=== PATIENT | male | born 1960 | race Caucasian/White ===

== ENCOUNTER 2024-09-07 12:07 | Outpatient (CLI) | payer OTHER | END 2024-09-07 23:59 | disposition home or self-care (01) | LOC: MRI02 12:07 | PROVIDERS: ATTEND Podiatrist Foot & Ankle Surgery | DX: M19.071 Primary osteoarthritis, right ankle and foot (principal); M65.871 Other synovitis and tenosynovitis, right ankle and foot; M25.871 Other specified joint disorders, right ankle and foot; M25.771 Osteophyte, right ankle; M85.671 Other cyst of bone, right ankle and foot; M76.61 Achilles tendinitis, right leg; M89.8X7 Other specified disorders of bone, ankle and foot; M25.471 Effusion, right ankle; M21.961 Unspecified acquired deformity of right lower leg; R60.9 Edema, unspecified; D36.13 Benign neoplasm of peripheral nerves and autonomic nervous system of lower limb, including hip; M92.60 Juvenile osteochondrosis of tarsus, unspecified ankle; M76.60 Achilles tendinitis, unspecified leg; M77.41 Metatarsalgia, right foot; M79.671 Pain in right foot; M79.672 Pain in left foot | CPT/HCPCS: 73718; 73721 ==

== ENCOUNTER 2025-10-29 07:35 | Day surgery (SDC) | payer OTHER ==
[2025-10-16 15:21] LABS: MEAN PLATELET VOLUME 7.8 FL (7.4-10.4); PRE OP HEMATOCRIT 43.9 % (42.0-52.0); PRE OP HEMOGLOBIN 15.0 g/dL (14.0-17.9); PRE OP PLATELET COUNT 242 X10'3 (140-440); PRE OP WHITE BLOOD COUNT 10.0 10'3 (4.8-10.8); RED CELL DISTRIBUTION WIDTH 13.9 % (11.5-14.5)
[2025-10-16 15:42] LABS: PRE OP INR 1.1 INR; PRE OP PARTIAL THROMB. TIME 26.0 SECONDS (22-32); PRE OP PROTIME 10.8 SECONDS (9.0-12.0)
[2025-10-16 15:54] LABS: CREATININE 1.26 MG/DL (0.60-1.10); PRE OP ALT 28 U/L (30-65); PRE OP ANION GAP 11 (8-16); PRE OP AST 16 U/L (10-37); PRE OP BILIRUB, TOTAL 1.4 MG/DL (0.0-1.0); PRE OP GLUCOSE 197 MG/DL (70-104); PRE OP POTASSIUM 3.8 MMOL/L (3.4-5.1); PRE OP SODIUM 140 MMOL/L (135-145); TOTAL CARBON DIOXIDE 27.1 MMOL/L (24-32); eGFR 57 ML/MIN
[~2025-10-29] VITALS: Ht 180.3 cm; Wt 118.1 kg
[2025-10-29] VITALS (10 sets, daily range): BP systolic 124–143; BP diastolic 69–91; PULSE 61–75; RESP 13–22; TEMP 97.3; O2SAT 91–98
[2025-10-29] MEDS: ceFAZolin 2gm/dext,iso 50mL 50 ML IV ONE (05:30)
[~2025-10-29 07:35] MED LIST: ATOR40TA71 PO; GLIM2TAB6 PO; METF-438 PO; TAMS-55 PO
[2025-10-29] MEDS: ringers solution, lacted 1,000 ML IV SCH (08:10)
[2025-10-29] MEDS ORDERED: fentaNYL/PF 50MCG/1 ML 2ML syringe ONE (10:34)
[2025-10-29] MEDS ORDERED: morphine 4 MG/ML inj SYRINge IV PRN (10:55)
[2025-10-29] MEDS ORDERED: ringers solution, lacted 1,000 ML IV SCH (10:55)
[2025-10-29] MEDS ORDERED: HYDROmorphone/PF 0.2 MG/ML SYRINGE IV PRN ×2 (10:55)
[2025-10-29] MEDS ORDERED: labetalol 20mg/4ml (5mg/ml) syringe IV PRN (10:55)
[2025-10-29] MEDS ORDERED: acetaminophen 1,000mg/100ml IV 100 ML IV PRN (10:55)
[2025-10-29] MEDS ORDERED: ondansetron/PF 4mg/2ml inj IV PRN (10:55)
[2025-10-29] MEDS ORDERED: hydrALAZINE 20mg/ml inj. IV PRN (10:55)
[2025-10-29] MEDS ORDERED: LIDOcaine 2% (20mg/ml) 5ml vial ONE (11:06)
[2025-10-29] MEDS ORDERED: midazolam 1 mg/ML 2ml injection ONE (11:06)
[2025-10-29] MEDS ORDERED: ROPIVAcaine 0.5% (5mg/ml) 30ml vial ONE (11:06)
[2025-10-29] MEDS ORDERED: ePHEDrine 50MG/ML INJ. ONE (11:07)
[2025-10-29] MEDS ORDERED: LIDOcaine 1%/PF 5ML 10 MG/ML VIAL ONE (11:07)
[2025-10-29] MEDS ORDERED: dexamethasone sod phosphate 4mg/ml inj. ONE (11:07)
[2025-10-29] MEDS ORDERED: propofol inj 20 ML IV ONE ×2 (11:07→12:34)
[2025-10-29] MEDS ORDERED: rocuronium 10mg/ml inj IV ONE (11:07)
[2025-10-29] MEDS ORDERED: 0.9 % SODIUM CHLORIDE 10 ML VIAL ONE (11:07)
[2025-10-29] MEDS ORDERED: ondansetron/PF 4mg/2ml inj ONE (11:08)
[2025-10-29] MEDS ORDERED: glycopyrrolate 0.2mg/ml inj ONE (12:21)
--- NOTE | 2025-10-29 16:43 | OPERATIVE REPORT ---
Operative Report Providers to CC ~ Date of Procedure: Oct 29, 2025 Pre-Operative Diagnosis: Left shoulder rotator cuff tear Post-Operative Diagnosis SAME as PRE-Op Procedure Performed Left shoulder arthroscopy with limited shoulder debridement. Left shoulder rotator cuff repair Surgeon: Osman Cui MD Safety Specialist Dr. Copeland Anesthesiologist: Yaquelin Kumari Type of Anesthesia: General, Regional Findings: Full-thickness and near full-thickness tears of the supraspinatus and infraspinatus junction. Quality of the tendon tissue was decent to do a repair of the tendons with a double row construct. Solid tendon repair was achieved. Complications None Prosthetics\Implants used: 2 2.6 mm FiberTak anchors were used for medial row fixation and 2 4.75 Bio[employer] posite SwiveLock anchors were used for lateral row fixation Estimated Blood Loss: 50 cc Specimen Removed: None Description of Procedure: Patient is brought to the operating. Placed in a supine position. Preoperative antibiotics of 2 g of Ancef were given. General plus regional anesthesia was performed. Patient was then positioned in a modified beach chair position. Bony prominences were well padded. Bilateral lower extremity SCDs were placed. The left upper extremity was prepped and draped in the usual sterile fashion. A time-out procedure was performed as per routine identifying the patient, site to be operated on, and procedure to be performed. I confirmed that we are doing a left shoulder surgery for shoulder arthroscopy, debridement, rotator cuff repair with possible allograft. Confirmed regional anesthesia was performed to the left upper extremity. Confirmed [address] Andrade assisted on this case. His assistance was crucial for the mini open portion of the rotator cuff repair to provide me with adequate visualization so that I could perform the repair properly. Without his assistance, the surgery can not proceed smoothly and I would not have the visualization that I do with his assistance to allow proper repair. I began the surgery with sticking a spinal needle through the posterior shoulder. I went into the shoulder joint and placed approximately 45 cc of saline. I then made an incision and introduced the arthroscope along the same trajectory. A diagnostic arthroscopy was performed. There was no glenohumeral joint arthrosis. There was fraying of the intra-articular portion of the biceps but only longitudinally. There was no substantial tearing. Subscapularis was intact. Labrum was intact. There was evidence of a near full-thickness if not full-thickness supraspinatus tendon tear with deficient tissue heading back towards the infraspinatus. There was no foreign material in the axillary recess. Under direct visualization, I placed a spinal needle just lateral to the coracoid. Patient had a ganglion cyst in this region and by making an incision, I incidentally drained the ganglion cyst. I then introduced a switching stick. This was followed by a 7 mm smooth cannula. I introduced a an arthroscopic ablator and lightly debrided the biceps, labrum, and rotator cuff tear that I could visualize from the joint. After doing this, I then went into the subacromial space. Instruments were removed from the joint and then placed into the subacromial space. I established a separate lateral portal under direct visualization. A limited bursectomy was performed just enough so that I could visualize the rotator cuff tear as well as visualize the fact that there was no need for subacromial decompression as the patient had adequate space. At this point, I converted to a mini open approach. The lateral portal was then extended proximally and distally. The incision length was approximately 5 cm. Care was taken not to go more than 5 cm off the lateral edge of the acromion to prevent injury to the axillary nerve. I utilized the rent in the deltoid and went in line with the fibers to extend that opening for a proximally 4 cm. Retractors were placed through the deltoid split . A more aggressive bursectomy was performed. After doing so, I could clearly visualize the underlying rotator cuff. There was visible areas were joint fluid was leaking out through the tendon supporting the fact that there was a full- thickness tear. In that region, I used a clean 15 blade and released the remaining intact fibers of the tendon. This created a crescent-shaped tear approximately 2 cm in anterior to posterior dimension. I debrided the tendon edge as this tissue was poor. I then placed two traction sutures in the rotator cuff and by applying lateral traction, I used a Emerson elevator to perform bursal sided and articular sided releases of the rotator cuff for good mobilization. I could easily repair this tendon so I used a curette and debrided the upper surface of the greater tuberosity to make a bleeding surface on the footprint. I then placed two, 2.6 mm [employer] FiberTak anchors just off of the articular margin for my medial row repair. I then passed those sutures up through the rotator cuff. This included FiberTape and SutureTape. I tied the SutureTape to establish a medial row. I then formed a suture bridge construct and this restored the footprint of the supraspinatus and infraspinatus tendons nicely. I then placed two, 0.75 Bio[employer]posite SwiveLock anchors on the lateral aspect of the greater tuberosity to established my lateral row and establish a good himanshu tprint. The repair was solid. I rotated the arm in internal and external rotation and so no gapping or movement of the tendons. I palpated all aspects of the rotator cuff and did not feel any further rims. So at this point, I thoroughly irrigated the shoulder. Adequate hemostasis was obtained. The deltoid split was closed with #2 FiberWire suture. Deep layers were closed with 0 Vicryl suture, subcutaneous layers were closed with 2-0 Vicryl suture and the deltoid split incision was closed with 3-0 Stratafix suture. The wound was sealed with Dermabond. The arthroscopic portals were closed with 3-0 nylon suture. Final sponge and needle counts were correct. Sterile dressings were applied. Arm was protected in an abduction shoulder orthotic. This will be kept on with the patient recovers in the perioperative period to prevent re- injury to the rotator cuff. Patient was thereafter recovered without complications and sent to recovery in good condition. Counts repoted as correct: Yes X-Ray findings: Per PAT Cond no x-ray OSMAN CUI MD Oct 29, 2025 16:43
== END 2025-10-29 14:15 | disposition home or self-care (01) ==
LOC: PAS 07:35
PROVIDERS: ATTEND Specialist
DX: M75.122 Complete rotator cuff tear or rupture of left shoulder, not specified as traumatic (principal); M19.012 Primary osteoarthritis, left shoulder; M25.512 Pain in left shoulder; M67.412 Ganglion, left shoulder; E11.9 Type 2 diabetes mellitus without complications; E66.9 Obesity, unspecified; N40.0 Benign prostatic hyperplasia without lower urinary tract symptoms; E78.5 Hyperlipidemia, unspecified; Z98.890 Other specified postprocedural states
CPT/HCPCS: 23412; 36415; 80053; 82948; 85025; 85610; 85730; A6222; C1713; J1100; J2003; J2250; J2405; J2704; J2710; J2795; J3010; J3490; J7120; Z7506; Z7508; Z7512; A4565; A4618; A6253; A6449; A6455; A7000